=== PATIENT | male | born 1975 ===

== ENCOUNTER 2022-04-15 17:36 | Emergency (ER) | payer MEDICAID ==
[2022-04-15] MEDS ORDERED: Amoxicillin/Clavulanate K 875-125 MG Tab PO ONE (18:06)
== END 2022-04-15 18:26 | disposition home or self-care (01) ==
LOC: LL.ED 17:36
DX: H66.93 Otitis media, unspecified, bilateral (principal)
CPT/HCPCS: 99282; A9270